=== PATIENT | female | born 1990 | race African-American/Black ===

== ENCOUNTER 2018-03-03 13:26 | Emergency (ER) | payer OTHER, SELFPAY ==
--- OUTSIDE RECORDS SUMMARY | 2018-03-03 13:28 | XMS REPORT | Clinical Summary ---
:1990 Author Organization [facility] Address [address] [place] [address] Care Team Providers Name Role Phone Asked, No Pcp Primary Care Provider Unavailable Allergies Active Allergy Reactions Severity Noted Date Comments Aspirin Itching 04/10/2017 Hydrocodone-Acetaminophen Itching Medium 04/10/2017 Current Medications Prescription Sig. Disp. Refills Start Date End Date Status nicotine (NICODERM CQ) Place 1 patch on 30 patch 0 04/11/2017 05/11/2017 21 mg/24 the skin daily hrIndications: Smoking for 30 days Cessation Indications: Smoking Cessation. Active Problems Problem Noted Date Severe episode of recurrent major depressive disorder, without psychotic 04/10 features Encounters Date Type Specialty Care Team Description 04/09/2017 - Hospital Encounter Psychiatry Kaci Romero MD 04/11/2017 Axel Singer MD Flack, James N., MD after 03/02/2017 Family History Medical History Relation Name Comments Bipolar disorder Father Depression Father Bipolar disorder Mother Depression Mother Relation Name Status Comments Father Mother Social History Tobacco Use Types Packs/Day Years Used Date Current Some Day Smoker Cigarettes 1 Started: 04/06/2016 Tobacco Cessation: Ready to Quit: No; Counseling Given: Yes Comments: Quitline Alcohol Use Drinks/Week oz/Week Comments No Sex Assigned at Date Recorded Not on file Last Filed Vital Signs Vital Sign Reading Time Taken Blood Pressure 110/81 04/11/2017 6:11 AM CDT Pulse 80 04/11/2017 6:11 AM CDT Temperature 36.7 C (98 F) 04/11/2017 6:11 AM CDT Respiratory Rate 22 04/11/2017 6:11 AM CDT Oxygen Saturation 96% 04/11/2017 6:11 AM CDT Inhaled Oxygen Concentration - - Weight 116 kg (255 lb 4 oz) 04/10/2017 12:06 AM CDT Height 165.1 cm (5' 5") 04/10/2017 12:06 AM CDT Body Mass Index 42.48 04/10/2017 12:06 AM CDT Plan of Treatment Health Maintenance Due Date Last Done Comments DIABETIC FOOT EXAM 1998 DIABETIC RETINAL EYE EXAM 1998 URINE MICROALBUMIN 1998 CERVICAL CANCER SCREENING 2009 INFLUENZA VACCINE 03/06/2018 Procedures Procedure Name Priority Date/Time Associated Comments Diagnosis US GREATER STAT 04/11/2017 9:55 AM Results for this THAN 14 WEEKS CDT procedure are in the results section. CBC HEMOGRAM Routine 04/11/2017 5:45 AM Results for this CDT procedure are in the results section. FASTING GLUCOSE Routine 04/11/2017 5:45 AM Results for this LEVEL CDT procedure are in the results section. TYPE AND SCREEN Routine 04/11/2017 5:45 AM Results for this CDT procedure are in the results section. ESTIMATED GFR Routine 04/11/2017 3:42 AM Results for this CDT procedure are in the results section. BASIC METABOLIC Routine 04/11/2017 3:42 AM Results for this PANEL CDT procedure are in the results section. HEPATITIS B SURFACE Routine 04/10/2017 6:20 PM Results for this ANTIGEN CDT procedure are in the results section. GLUCOSE LEVEL Routine 04/10/2017 6:20 PM Results for this CDT procedure are in the results section. RUBELLA AB IGG Routine 04/10/2017 6:18 PM Results for this CDT procedure are in the results section. HIV 1, 2 ANTIBODY Routine 04/10/2017 6:18 PM Results for this CDT procedure are in the results section. SYPHILIS TREPONEMAL Routine 04/10/2017 6:18 PM Results for this IGG CDT procedure are in the results section. LIPID PANEL Routine 04/10/2017 5:40 AM Results for this CDT procedure are in the results section. HEMOGLOBIN A1C Routine 04/10/2017 5:40 AM Results for this CDT procedure are in the results section. after 03/02/2017 Results US Greater Than 14 Weeks (04/11/2017 9:55 AM) Narrative Performed At EXAM: ULTRASOUND OBSTETRICAL [facility] DATE: 04/11/2017 8:20 AM COMPARISON: None CLINICAL DATA: evaluation . TECHNIQUE: Limited Transabdominal images were obtained. FINDINGS: OVERVIEW: A single living fetus is identified in breech presentation.The estimated age based on biometric data is 18 weeks and 3 days. The estimated delivery date is 09/09/2017. The average heart rate is 147 beats per minutes. The placenta is posterior with gradeI.There is no evidence of placenta previa or abruption. The quantity of amniotic fluid is 18 cm (normal range none available) Estimated Weight: 233 grams. SURVEY: The lateral ventricle, spine, 4-chamber heart, stomach, kidneys, urinary bladder, 3-vessel cord, and cord insertion were identified.No morphologic abnormalities were seen. IMPRESSION: A single viable intrauterine with the estimated gestational age of 18 weeks and 3 days and the estimate delivery date of 09/09/2017. No sonographic evidence of placenta previa or abruption. Unremarkable anatomical survey. [id number] Procedure Note Interface, Radiology Results Incoming - 04/11/2017 10:17 AM CDT EXAM: ULTRASOUND OBSTETRICAL DATE: 04/11/2017 8:20 AM COMPARISON: None CLINICAL DATA: evaluation . TECHNIQUE: Limited Transabdominal images were obtained. FINDINGS: OVERVIEW: A single living fetus is identified in breech presentation. The estimated age based on biometric data is 18 weeks and 3 days. The estimated delivery date is 09/09/2017. The average heart rate is 147 beats per minutes. The placenta is posterior with gradeI. There is no evidence of placenta previa or abruption. The quantity of amniotic fluid is 18 cm (normal range none available) Estimated Weight: 233 grams. SURVEY: The lateral ventricle, spine, 4-chamber heart, stomach, kidneys, urinary bladder, 3-vessel cord, and cord insertion were identified. No morphologic abnormalities were seen. IMPRESSION: A single viable intrauterine with the estimated gestational age of 18 weeks and 3 days and the estimate delivery date of 09/09/2017. No sonographic evidence of placenta previa or abruption. Unremarkable anatomical survey. [facility]-[id number] Performing Organization Address City/State/Zipcode Phone Number [facility] [address] [place] [address] CBC hemogram (04/11/2017 5:45 AM) WBC 12.03 (H) 4.50 - 11.00 k/uL [facility] DEPARTMENT OF PATHOLOGY AND GENOMIC MEDICINE RBC 4.17 (L) 4.20 - 5.50 m/uL [facility] DEPARTMENT OF PATHOLOGY AND GENOMIC MEDICINE HGB 12.2 12.0 - 16.0 g/dL [facility] DEPARTMENT OF PATHOLOGY AND GENOMIC MEDICINE HCT 37.0 37.0 - 47.0 % [facility] DEPARTMENT OF PATHOLOGY AND GENOMIC MEDICINE MCV 88.7 82.0 - 100.0 fL [facility] DEPARTMENT OF PATHOLOGY AND GENOMIC MEDICINE MCH 29.3 27.0 - 34.0 pg [facility] DEPARTMENT OF PATHOLOGY AND GENOMIC MEDICINE MCHC 33.0 31.0 - 37.0 g/dL [facility] DEPARTMENT OF PATHOLOGY AND GENOMIC MEDICINE RDW - SD 42.4 37.0 - 55.0 fL [facility] DEPARTMENT OF PATHOLOGY AND GENOMIC MEDICINE MPV 9.3 8.8 - 13.2 fL [facility] DEPARTMENT OF PATHOLOGY AND GENOMIC MEDICINE Platelet count 353 150 - 400 k/uL [facility] DEPARTMENT OF PATHOLOGY AND GENOMIC MEDICINE Nucleated RBC 0.00 /100 WBC [facility] DEPARTMENT OF PATHOLOGY AND GENOMIC MEDICINE Specimen Blood Performing Organization Address City/State/Zipcode Phone Number [facility] DEPARTMENT OF PATHOLOGY AND [address] [place] [address] GENOMIC MEDICINE Type and screen (04/11/2017 5:45 AM) ABO grouping B [facility] DEPARTMENT OF PATHOLOGY AND GENOMIC MEDICINE Rh type POS [facility] DEPARTMENT OF PATHOLOGY AND GENOMIC MEDICINE Antibody screen (gel) NEG [facility] DEPARTMENT OF PATHOLOGY AND GENOMIC MEDICINE Specimen Blood Performing Organization Address City/[facility] Phone Number [facility] DEPARTMENT OF PATHOLOGY AND [address] [place] [address] MEDICINE Fasting glucose level (04/11/2017 5:45 AM) Glucose, fasting 101 (H) 65 - 99 mg/dL [facility] DEPARTMENT OF PATHOLOGY AND GENOMIC MEDICINE Specimen Blood Performing Organization Address City/[facility]/Zipcode Phone Number [facility] DEPARTMENT OF PATHOLOGY AND [address] [place] [address] GENOMIC MEDICINE Estimated GFR (04/11/2017 3:42 AM) GFR Non Af Amer >90 mL/min/1.73 m2 [facility] DEPARTMENT OF PATHOLOGY AND GENOMIC MEDICINE GFR Af Amer >90 mL/min/1.73 m2 [facility] DEPARTMENT OF Comment: PATHOLOGY AND GENOMIC Chronic kidney disease: <60 mL/min/1.73m2 MEDICINE Kidney failure: <15 mL/min/1.73m2 The estimated GFR is calculated from the IDMS-traceable Modification of Diet in Renal Disease Equation. The accuracy of the calculation is poor when the creatinine is normal. Calculated values >90 mL/min/1.73m2 are not reported. This equation has not been validated in children (<18 years), women, the elderly (>70 years), or ethnic groups other than Caucasians and Americans. Specimen Plasma specimen Performing Organization Address City/State/[facility] Phone Number [facility] DEPARTMENT OF PATHOLOGY AND [address] [place] [id number] [place] [address] Basic metabolic panel (04/11/2017 3:42 AM) Sodium 138 135 - 148 mEq/L [facility] DEPARTMENT OF PATHOLOGY AND GENOMIC MEDICINE Potassium 3.8 3.5 - 5.0 mEq/L [facility] DEPARTMENT OF PATHOLOGY AND GENOMIC MEDICINE Chloride 99 98 - 112 mEq/L [facility] DEPARTMENT OF PATHOLOGY AND GENOMIC MEDICINE CO2 23 (L) 24 - 31 mEq/L [facility] DEPARTMENT OF PATHOLOGY AND GENOMIC MEDICINE Anion gap 16 (H) 7 - 15 mEq/L [facility] DEPARTMENT OF PATHOLOGY Comment: AND [facility] Starting from November , anion gap calculation no longer incorporates potassium. Please note the change. BUN 6 6 - 20 mg/dL [facility] DEPARTMENT OF PATHOLOGY AND GENOMIC MEDICINE Creatinine 0.6 0.5 - 0.9 mg/dL [facility] DEPARTMENT OF PATHOLOGY AND GENOMIC MEDICINE Glucose 101 (H) 65 - 99 mg/dL [facility] DEPARTMENT OF PATHOLOGY AND GENOMIC MEDICINE Calcium 9.5 8.3 - 10.2 mg/dL [facility] DEPARTMENT OF PATHOLOGY AND [employer] MEDICINE Specimen Plasma specimen Performing Organization Address City/[facility] Phone Number [facility] DEPARTMENT OF PATHOLOGY AND [address] [place] [phone] [facility] Hepatitis B surface antigen (04/10/2017 6:20 PM) Hepatitis B surface Ag Non-reactive Non-reactive [facility] DEPARTMENT OF PATHOLOGY AND [facility] MEDICINE Specimen Blood Performing Organization Address City/[facility]/Zipcode Phone Number [facility] DEPARTMENT OF PATHOLOGY AND [address] [place] [phone] [facility] Glucose level (04/10/2017 6:20 PM) Glucose 98 65 - 99 mg/dL [facility] DEPARTMENT OF PATHOLOGY AND [facility] MEDICINE Specimen Plasma specimen Performing Organization Address [facility] Phone Number [facility] DEPARTMENT OF PATHOLOGY AND [address] [place] [address] Syphilis treponemal IgG (04/10/2017 6:18 PM) Syphilis treponemal IgG Non-reactiveComment: Non-reactive [facility] DEPARTMENT OF Non-reactive: No PATHOLOGY AND GENOMIC serological evidence of MEDICINE Syphilis infection Specimen Serum Performing Organization Address [facility] Phone Number [facility] DEPARTMENT OF PATHOLOGY AND [address] [place] [address] Rubella Ab IgG (04/10/2017 6:18 PM) Rubella IgG antibody Positive Negative [facility] DEPARTMENT OF PATHOLOGY Comment: [facility] IgG antibody levels are at a level that are considered to indicate positive immunity Specimen Serum Performing Organization Address [facility] Phone Number [facility] DEPARTMENT OF PATHOLOGY AND [address] [place] [address] HIV 1, 2 antibody (04/10/2017 6:18 PM) HIV 1, 2 antibody Non-reactive Non-reactive [facility] DEPARTMENT OF Comment: PATHOLOGY AND GENOMIC Starting from November 02 2015, 4th generation HIV screening MEDICINE and confirmation assays are in use at [facility], consistent with the CDC-recommended algorithm. The screening test detects antibodies to HIV-1, HIV-2 and the p24 antigen. Positive screening results will be automatically reflexed to a HIV-1/HIV-2 differentiation assay. Indeterminant HIV-1 results will be further automatically reflexed to a nucleic acid test for detection of acute infection. Western blot will no longer be performed as a confirmation test. For a quick reference guide on the testing algorithm, please refer to: http://stacks.cdc.gov/view/cdc/25349. Specimen Blood Performing Organization Address [facility] Phone Number [facility] DEPARTMENT OF PATHOLOGY AND [address] [place] [address] Hemoglobin A1c (04/10/2017 5:40 AM) Hemoglobin A1C 6.0 (H) 4.0 - 5.6 % [facility] DEPARTMENT OF PATHOLOGY Comment: AND [facility] HbA1c cutoffs for diagnosing diabetes: 4.0% - 5.6%=normal 5.7% - 6.4%=increased risk for diabetes (prediabetes) >=6.5%=diabetes Goals for glycemic control (ADA 2016) < 7.0%Target for non adults with diabetes. More or less stringent targets may be appropriate for individual patients. <7.5% Target for Children and adolescents with type 1 diabetes. Specimen Blood Performing Organization Address City/[facility] Phone Number [facility] DEPARTMENT OF PATHOLOGY AND [address] [place] [address] GENOMIC MEDICINE Lipid panel (04/10/2017 5:40 AM) Cholesterol 167 <200 mg/dL [facility] DEPARTMENT OF PATHOLOGY AND GENOMIC MEDICINE Triglycerides 122 <150 mg/dL [facility] DEPARTMENT OF PATHOLOGY AND GENOMIC MEDICINE HDL cholesterol 55 >40 mg/dL [facility] DEPARTMENT OF PATHOLOGY AND GENOMIC MEDICINE LDL cholesterol 98Comment: Result <100 mg/dL [facility] DEPARTMENT OF obtained by direct LDL PATHOLOGY AND GENOMIC measurement MEDICINE Lipid panel interpretation SeeBelow [facility] DEPARTMENT OF Comment: PATHOLOGY AND GENOMIC Total Cholesterol (mg/dL) MEDICINE <200 Desirable 187-758Nnzpxmkrfm-[id number] >=240High Triglycerides (mg/dL) <150 Normal 073-660Oczosqgomn-szne 200-499High >=500Very high HDL Cholesterol (mg/dL) <40Low (male) <40Low (female) LDL Cholesterol (mg/dL) <100 Optimal 100-129Near or above optimal 134-560Tskcdcotfp-rifx 160-189High >=190Very high Risk Catergories that modify LDL goals. Risk CatergoriesLDL goal (mg/dL) CHD and CHD risk equivalent<100 (10-year risk >20%) Multiple (2+) risk factors <130 (10-year risk=<20%) 0-1 risk factors <160 (<10-year risk) Defining levels of lipids in metabolic syndrome Triglycerides>=150 mg/dL HDL Cholesterol Men<40 mg/dL Women<40 mg/dL Non-HDL cholesterol is a second target for therapy in persons with high triglycerides (>=200 mg/dL) Specimen Plasma specimen Performing Organization Address City/State/Zipcode Phone Number [facility] DEPARTMENT OF PATHOLOGY AND [address] [place] [address] [employer] MEDICINE after 03/02/2017 Insurance Payer Benefit Plan / Group Subscriber ID Type Phone Address MEDICAID MEDICAID xxxxxxxxx Medicaid
[2018-03-03 14:45] LABS: Absolute Lymphocytes (CBC) 3.1 K/uL (0.7-4.9); Absolute Monocytes 0.6 K/uL (0.1-1.3); Absolute Neutrophil 6.1 K/uL (1.8-8.0); Basophils % 1.3 % (0-1.3); Eosinophils % 2.8 % (0-4.4); Hematocrit 39.9 % (36.0-45.0); MCH 28.5 pg (27.0-35.0); MCV 85.5 fL (80-100); MPV 7.7 fL (7.6-11.3); RBC Red Blood Cell Count 4.67 M/uL (3.86-4.86)
[2018-03-03] MEDS ORDERED: NA CHLORIDE 0.9% 1,000 ML ONE (14:53)
[2018-03-03] MEDS ORDERED: ONDANSETRON 4 MG/2 ML VIAL ONE (14:53)
[2018-03-03 15:02] LABS: ALT/SGPT 23 U/L (12-78); AST/SGOT 15 U/L (15-37); Albumin 3.5 g/dL (3.4-5.0); Alkaline Phosphatase 102 U/L (45-117); Amylase Level 40 U/L (25-115); BUN Blood Urea Nitrogen 8 mg/dL (7-18); Bicarbonate 30 mmol/L (21-32); Bilirubin Direct < 0.1 mg/dL (0-0.2); Bilirubin Total 0.2 mg/dL (0.2-1.0); Glucose Level 211 mg/dL (74-106); Lipase 195 U/L (73-393); Potassium 3.6 mmol/L (3.5-5.1); Protein, Total 7.6 g/dL (6.4-8.2); Sodium Level 140 mmol/L (136-145)
[2018-03-03 15:05] LABS: Urine Bacteria <20 /HPF (<20); Urine Culture Reflex Order NOT NEEDED; Urine RBC NONE SEEN /HPF (NONE SEEN)
[2018-03-03 15:06] LABS: Urine Blood NEGATIVE (NEG); Urine Glucose NEGATIVE (NEG); Urine Protein NEGATIVE (NEG); Urine Specific Gravity 1.015 (1.005-1.030); Urine pH 6.5 (5.0-7.0)
--- NOTE | 2018-03-03 16:14 | ER ---
Nurse's Notes [facility] Name: Juan Lu Age: 27 yrs Sex: Female : 1990 Arrival Date: 03/03/2018 Time: 13:27 Bed 24 Private MD: Diagnosis: Peptic ulcer, site unspecified Presentation: 03/03 13:31 Presenting complaint: Patient states: Abdominal cramping and diarrhea since . aj Transition of care: patient was not received from another setting of care. Onset of symptoms was February 27, 2018. Risk Assessment: Do you want to hurt yourself or someone else? Patient reports no desire to harm self or others. Initial Sepsis Screen: Does the patient meet any 2 criteria? No. Patient's initial sepsis screen is negative. Does the patient have a suspected source of infection? No. Patient's initial sepsis screen is negative. Note Patient arrived from [facility] with Non Narcotic agreement. Care prior to arrival: None. 13:31 Method Of Arrival: EMS: [facility] 13:31 Acuity: MEGHAN 3 aj Triage Assessment: 13:32 General: Appears in no apparent distress. comfortable, Behavior is calm, cooperative, aj appropriate for age. Pain: Denies pain. Neuro: Level of Consciousness is awake, alert, obeys commands, Oriented to person, place, time, situation, Appropriate for age. Respiratory: Airway is patent Respiratory effort is even, unlabored, Respiratory pattern is regular, symmetrical. GI: Reports cramping, diarrhea. Derm: Skin is intact, is healthy with good turgor, Skin is pink, warm \T\ dry. normal. GLASS SAGGER: 13:32 LMP 02/24/2018 aj Historical: - Allergies: 13:32 Aspirin; aj 13:32 Vicodin; aj 13:32 Banana; aj - PMHx: 13:32 Diabetes - NIDDM; Bipolar disorder; aj - PSHx: 13:32 ; aj - Immunization history:: Adult Immunizations up to date. - Social history:: Smoking status: Patient uses tobacco products, denies chronic smoking, but will smoke occasionally. - Ebola Screening: : Patient negative for fever greater than or equal to 101.5 degrees Fahrenheit, and additional compatible Ebola Virus Disease symptoms Patient denies exposure to infectious person Patient denies travel to an Ebola-affected area in the 21 days before illness onset No symptoms or risks identified at this time. - Family history:: not pertinent. - Hospitalizations: : No recent hospitalization is reported. Screenin:39 Abuse screen: Denies threats or abuse. Denies injuries from another. Nutritional ed1 screening: No deficits noted. Tuberculosis screening: No symptoms or risk factors identified. Fall Risk None identified. Assessment: 13:39 General: Appears in no apparent distress. Behavior is calm, cooperative. Pain: ed1 Complains of pain in abdomen Pain does not radiate. Pain currently is 6 out of 10 on a pain scale. Quality of pain is described as aching, Pain began 2-3 days ago. Is continuous. Neuro: Level of Consciousness is awake, alert, obeys commands, Oriented to person, place, time, situation. Cardiovascular: Denies chest pain, Heart tones S1 S2 present Capillary refill < 3 seconds in bilateral fingers. Respiratory: Airway is patent Respiratory effort is even, unlabored, Respiratory pattern is regular, symmetrical, Breath sounds are clear bilaterally. GI: Abdomen is non-distended, Bowel sounds present X 4 quads. Abd is soft and non tender X 4 quads. Reports lower abdominal pain, upper abdominal pain, diarrhea, nausea, Patient currently denies vomiting. : No signs and/or symptoms were reported regarding the genitourinary system. EENT: No signs and/or symptoms were reported regarding the EENT system. Derm: Skin is intact, is healthy with good turgor, Skin is dry, Skin is normal, Skin temperature is warm. Musculoskeletal: Circulation, motion, and sensation intact. 13:42 General: the previous assessment is accurate, call light remains within reach. 15:20 Reassessment: Patient appears in no apparent distress at this time. No changes from ed1 previously documented assessment. Patient and/or family updated on plan of care and expected duration. Pain level reassessed. Patient is alert, oriented x 3, equal unlabored respirations, skin warm/dry/pink. Patient states symptoms have not improved. 16:43 Reassessment: Patient appears in no apparent distress at this time. Patient and/or ed1 family updated on plan of care and expected duration. Pain level reassessed. Patient is alert, oriented x 3, equal unlabored respirations, skin warm/dry/pink. Patient denies pain at this time. Patient states feeling better. Patient states symptoms have improved. Vital Signs: 13:32 BP 154 / 98; Pulse 80; Resp 16; Temp 97.8; Pulse Ox 99% on R/A; Weight 117.93 kg; aj Height 5 ft. 5 in. (165.10 cm); 15:20 BP 126 / 75; Pulse 72; Resp 20; Pulse Ox 100% on R/A; Pain 6/10; ed1 16:34 BP 136 / 84; Pulse 76; Resp 16; Pulse Ox 100% ; Pain 0/10; tt1 13:32 Body Mass Index 43.27 (117.93 kg, 165.10 cm) aj ED Course: 13:27 Patient arrived in ED. as 13:32 Triage completed. aj 13:32 Arm band placed on right wrist. aj 13:36 Buffy Martin LVN is Primary Nurse. ed1 13:39 Patient has correct armband on for positive identification. Bed in low position. Call ed1 light in reach. 13:41 Awaiting ED provider evaluation. ed1 13:51 [facility]quivel FNP [facility] kav 13:51 Efrain Denny MD is Attending Physician. kav 14:33 Initial lab(s) drawn, by co, sent to lab. Urine collected: clean catch specimen, ed1 cloudy. Inserted saline lock: 22 gauge in right antecubital area, using aseptic technique. Blood collected. 16:34 IV discontinued, bleeding controlled, No redness/swelling at site. Pressure dressing tt1 applied. 16:43 No provider procedures requiring assistance completed. ed1 16:44 IV discontinued. ed1 Administered Medications: 14:28 CANCELLED (Narcotics Program): fentaNYL (PF) 25 mcg IVP once kav 14:52 Drug: Zofran 4 mg Route: IVP; Site: right antecubital; 16:44 Follow up: Response: Nausea is decreased ed1 14:55 Drug: NS 0.9% 1000 ml Route: IV; Rate: 1000 ml; Site: right antecubital; ed1 16:44 Follow up: IV Status: Completed infusion; IV Intake: 1000ml ed1 Intake: 16:44 IV: 1000ml; Total: 1000ml. ed1 Outcome: 16:14 Discharge ordered by . kav 16:43 Discharged to home ambulatory. ed1 16:43 Condition: good 16:43 Discharge instructions given to patient, Instructed on discharge instructions, follow up and referral plans. medication usage, Demonstrated understanding of instructions, follow-up care, medications, Prescriptions given X 1. 16:44 Patient left the ED. ed1 Signatures: Lesvia Hunter, RN RN Juanita Quevedo, EGG PRODUCER EGG PRODUCER Raina Shabazz Shelby, RN RN ss Riggs, Erika, SWIMMING POOL ATTENDANT SWIMMING POOL ATTENDANT ed1 Rachel Dinh tt1
--- NOTE | 2018-03-03 16:14 | EDPHYS ---
Physician Documentation [facility] Name: Juan Lu Age: 27 yrs Sex: Female : 1990 Arrival Date: 03/03/2018 Time: 13:27 Bed 24 Private MD: ED Physician Efrain Denny HPI: 03/03 13:50 This 27 yrs old Black Female presents to ER via EMS with complaints of Abdominal Pain, kav Diarrhea. 14:23 The patient presents with abdominal pain in the periumbilical area. Abdominal pain is kav reportedly worse after eating.. Onset: The symptoms/episode began/occurred acutely. The symptoms do not radiate. Associated signs and symptoms: Pertinent positives: nausea, Pertinent negatives: diarrhea, fever. The symptoms are described as crampy. Modifying factors: The symptoms are alleviated by nothing, the symptoms are aggravated by food. Severity of pain: At its worst the pain was moderate just prior to arrival, a 7 / 10. The patient has experienced a previous episode, approximately 3 months ago, DX: H-Pylori. The patient has not recently seen a physician. . 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 - Social history:: Smoking status: Patient uses tobacco products, denies chronic smoking, but will smoke occasionally. - Ebola Screening: : Patient negative for fever greater than or equal to 101.5 degrees Fahrenheit, and additional compatible Ebola Virus Disease symptoms Patient denies exposure to infectious person Patient denies travel to an Ebola-affected area in the 21 days before illness onset No symptoms or risks identified at this time. - Family history:: not pertinent. - Hospitalizations: : No recent hospitalization is reported. ROS: 14:29 Abdomen/GI: Positive for abdominal pain, nausea, diarrhea, abdominal cramps, Negative kav for abdominal distension. 14:29 Constitutional: Negative for fever, chills, and weight loss, Eyes: Negative for injury, kav pain, redness, and discharge, ENT: Negative for injury, pain, and discharge, Neck: Negative for injury, pain, and swelling, Cardiovascular: Negative for chest pain, palpitations, and edema, Respiratory: Negative for shortness of breath, cough, wheezing, and pleuritic chest pain, Back: Negative for injury and pain, : Negative for injury, bleeding, discharge, and swelling, MS/Extremity: Negative for injury and deformity, Skin: Negative for injury, rash, and discoloration, Neuro: Negative for headache, weakness, numbness, tingling, and seizure, Psych: Negative for depression, anxiety, suicide ideation, homicidal ideation, and hallucinations, Allergy/Immunology: Negative for hives, rash, and allergies, Endocrine: Negative for neck swelling, polydipsia, polyuria, polyphagia, and marked weight changes, Hematologic/Lymphatic: Negative for swollen nodes, abnormal bleeding, and unusual bruising. Exam: 14:29 Constitutional: This is a well developed, well nourished patient who is awake, alert, kav and in no acute distress. Head/Face: Normocephalic, atraumatic. Eyes: Pupils equal round and reactive to light, extra-ocular motions intact. Lids and lashes normal. Conjunctiva and sclera are non-icteric and not injected. Cornea within normal limits. Periorbital areas with no swelling, redness, or edema. ENT: Nares patent. No nasal discharge, no septal abnormalities noted. Tympanic membranes are normal and external auditory canals are clear. Oropharynx with no redness, swelling, or masses, exudates, or evidence of obstruction, uvula midline. Mucous membranes moist. Neck: Trachea midline, no thyromegaly or masses palpated, and no cervical lymphadenopathy. Supple, full range of motion without nuchal rigidity, or vertebral point tenderness. No Meningismus. Chest/axilla: Normal chest wall appearance and motion. Nontender with no deformity. No lesions are appreciated. Cardiovascular: Regular rate and rhythm with a normal S1 and S2. No gallops, murmurs, or rubs. Normal PMI, no JVD. No pulse deficits. Respiratory: Lungs have equal breath sounds bilaterally, clear to auscultation and percussion. No rales, rhonchi or wheezes noted. No increased work of breathing, no retractions or nasal flaring. Back: No spinal tenderness. No costovertebral tenderness. Full range of motion. Skin: Warm, dry with normal turgor. Normal color with no rashes, no lesions, and no evidence of cellulitis. MS/ Extremity: Pulses equal, no cyanosis. Neurovascular intact. Full, normal range of motion. Neuro: Awake and alert, GCS 15, oriented to person, place, time, and situation. Cranial nerves II-XII grossly intact. Motor strength 5/5 in all extremities. Sensory grossly intact. Cerebellar exam normal. Normal gait. Psych: Awake, alert, with orientation to person, place and time. Behavior, mood, and affect are within normal limits. 14:29 Abdomen/GI: Inspection: gravid appearance, obese Bowel sounds: normal, in all quadrants, Palpation: moderate abdominal tenderness, in the umbilical area. Vital Signs: 13:32 BP 154 / 98; Pulse 80; Resp 16; Temp 97.8; Pulse Ox 99% on R/A; Weight 117.93 kg; aj Height 5 ft. 5 in. (165.10 cm); 15:20 BP 126 / 75; Pulse 72; Resp 20; Pulse Ox 100% on R/A; Pain 6/10; ed1 16:34 BP 136 / 84; Pulse 76; Resp 16; Pulse Ox 100% ; Pain 0/10; tt1 13:32 Body Mass Index 43.27 (117.93 kg, 165.10 cm) MDM: 14:29 Medical screening is not applicable. [facility] 14:29 Data reviewed: vital signs, nurses notes. [facility] 03/03 14:14 Order name: Amylase, Serum [facility] 03/03 14:14 Order name: Basic Metabolic Panel [facility] 03/03 14:14 Order name: CBC with Diff; Complete Time: 15:59 [facility] 03/03 14:14 Order name: Creatinine for Radiology; Complete Time: 15:59 [facility] 03/03 14:14 Order name: Hepatic Function; Complete Time: 15:59 [facility] 03/03 14:14 Order name: Lipase; Complete Time: 15:59 [facility] 03/03 14:14 Order name: Urine Microscopic Only; Complete Time: 15:59 [facility] 03/03 14:15 Order name: Amylase Level; Complete Time: 15:59 [facility] 03/03 14:15 Order name: Basic Metabolic Panel; Complete Time: 15:59 [facility] 03/03 14:43 Order name: Urine Dipstick--Ancillary (enter results) 03/03 14:43 Order name: Urine --Ancillary (enter results) 03/03 14:43 Order name: Urine Dipstick-Ancillary; Complete Time: 15:59 [facility] 03/03 14:43 Order name: Urine --Ancillary; Complete Time: 15:59 EDMA 03/03 14:14 Order name: Urine Test (obtain specimen); Complete Time: 14:34 kav 03/03 14:14 Order name: IV Saline Lock; Complete Time: 14:34 kav 03/03 14:14 Order name: Labs collected and sent; Complete Time: 14:34 kav 03/03 14:14 Order name: Urine Dipstick-Ancillary (obtain specimen); Complete Time: 14:34 kav Administered Medications: 14:28 CANCELLED (Narcotics Program): fentaNYL (PF) 25 mcg IVP once kav 14:52 Drug: Zofran 4 mg Route: IVP; Site: right antecubital; 16:44 Follow up: Response: Nausea is decreased ed1 14:55 Drug: NS 0.9% 1000 ml Route: IV; Rate: 1000 ml; Site: right antecubital; ed1 16:44 Follow up: IV Status: Completed infusion; IV Intake: 1000ml ed1 Disposition: 16:52 Co-signature as Attending Physician, Efrain Denny MD I agree with the assessment and kdr plan of care. Disposition: 03/03/18 16:14 Discharged to Home. Impression: Peptic ulcer, site unspecified. - Condition is Stable. - Discharge Instructions: Peptic Ulcer, [id number]. - Prescriptions for sucralfate 1 gram Oral tablet - take 1 tablet by ORAL route 4 times per day on an empty stomach 1 hour before meals and at bedtime; 40 tablet. - Medication Reconciliation Form, Thank You Letter, Antibiotic Education, Prescription Opioid Use form. - Follow up: Private Physician; When: 5 - 6 days; Reason: Recheck today's complaints, Continuance of care, Re-evaluation by your physician. - Problem is new. - Symptoms have improved. Signatures: Dispatcher [employer] [facility] Lesvia Hunter RN RN aj Rittger, Kevin, MD MD kdr Vern, Katherine, CUSTODIAL LABORER CUSTODIAL LABORER Yohana Becerra RN RN ss Martin, Buffy, FISCAL MANAGER FISCAL MANAGER ed1 Corrections: (The following items were deleted from the chart) 14:28 14:14 fentaNYL (PF) 25 mcg IVP once ordered. kav kav 14:30 14:26 Constitutional: Negative for fever, chills, and weight loss, Eyes: Negative for kav injury, pain, redness, and discharge, ENT: Negative for injury, pain, and discharge, Neck: Negative for injury, pain, and swelling, Cardiovascular: Negative for chest pain, palpitations, and edema, Respiratory: Negative for shortness of breath, cough, wheezing, and pleuritic chest pain, Back: Negative for injury and pain, : Negative for injury, bleeding, discharge, and swelling, MS/Extremity: Negative for injury and deformity, Skin: Negative for injury, rash, and discoloration, Neuro: Negative for headache, weakness, numbness, tingling, and seizure, Psych: Negative for depression, anxiety, suicide ideation, homicidal ideation, and hallucinations, Allergy/Immunology: Negative for hives, rash, and allergies, Endocrine: Negative for neck swelling, polydipsia, polyuria, polyphagia, and marked weight changes, Hematologic/Lymphatic: Negative for swollen nodes, abnormal bleeding, and unusual bruising, kav 16:44 16:14 03/03/2018 16:14 Discharged to Home. Impression: Peptic ulcer, site unspecified. ed1 Condition is Stable. Forms are Medication Reconciliation Form, Thank You Letter, Antibiotic Education, Prescription Opioid Use. Follow up: Private Physician; When: 5 - 6 days; Reason: Recheck today's complaints, Continuance of care, Re-evaluation by your physician. Problem is new. Symptoms have improved. kav
== END 2018-03-03 16:44 | disposition home or self-care (01) ==
LOC: ER 13:26
DX: K27.9 Peptic ulcer, site unspecified, unspecified as acute or chronic, without hemorrhage or perforation (principal); Z72.0 Tobacco use; Z88.5 Allergy status to narcotic agent; Z88.6 Allergy status to analgesic agent; Z91.018 Allergy to other foods
CPT/HCPCS: 36415; 80048; 80076; 81003; 81015; 81025; 82150; 83690; 85025; 96361; 96374; 99284; J2405; J7030

== ENCOUNTER 2018-03-19 14:26 | Emergency (ER) | payer SELFPAY ==
--- OUTSIDE RECORDS SUMMARY | 2018-03-19 14:29 | XMS REPORT | Clinical Summary ---
:1990 Author Organization [facility] [employer] Address [address] [place] [address] Care Team Providers Name Role Phone Asked, [...] Singer MD Flack, James N., MD after 03/18/2017 Family History Medical History Relation Name Comments [...] procedure are in the results section. after 03/18/2017 Results US Greater Than 14 Weeks (04/11/2017 [...] placenta previa or abruption. Unremarkable anatomical survey. [id number] Procedure Note Interface, Radiology Results Incoming - [...] placenta previa or abruption. Unremarkable anatomical survey. [facility]-[id number] Performing Organization Address City/State/Zipcode Phone Number [facility] [address] [place] [address] CBC hemogram (04/11/2017 5:45 AM) WBC 12.03 (H) 4.50 - 11.00 k/uL [facility] DEPARTMENT OF PATHOLOGY AND GENOMIC MEDICINE RBC 4.17 (L) 4.20 - 5.50 m/uL [facility] DEPARTMENT OF PATHOLOGY AND GENOMIC MEDICINE HGB 12.2 12.0 - 16.0 g/dL [facility] DEPARTMENT OF PATHOLOGY AND GENOMIC MEDICINE HCT 37.0 37.0 - 47.0 % [facility] DEPARTMENT OF PATHOLOGY AND GENOMIC MEDICINE MCV 88.7 82.0 - 100.0 fL [facility] DEPARTMENT OF PATHOLOGY AND GENOMIC MEDICINE MCH 29.3 27.0 - 34.0 pg [facility] DEPARTMENT OF PATHOLOGY AND GENOMIC MEDICINE MCHC 33.0 31.0 - 37.0 g/dL [facility] DEPARTMENT OF PATHOLOGY AND GENOMIC MEDICINE RDW - SD 42.4 37.0 - 55.0 fL [facility] DEPARTMENT OF PATHOLOGY AND GENOMIC MEDICINE MPV 9.3 8.8 - 13.2 fL [facility] DEPARTMENT OF PATHOLOGY AND GENOMIC MEDICINE Platelet count 353 150 - 400 k/uL [facility] DEPARTMENT OF PATHOLOGY AND GENOMIC MEDICINE Nucleated RBC 0.00 /100 WBC [facility] DEPARTMENT OF PATHOLOGY AND GENOMIC MEDICINE Specimen Blood Performing Organization Address City/State/Zipcode Phone Number [facility] DEPARTMENT OF PATHOLOGY AND [address] [place] [address] GENOMIC MEDICINE Type and screen (04/11/2017 5:45 AM) ABO grouping B [facility] DEPARTMENT OF PATHOLOGY AND GENOMIC MEDICINE Rh type POS [facility] DEPARTMENT OF PATHOLOGY AND GENOMIC MEDICINE Antibody screen (gel) NEG [facility] DEPARTMENT OF PATHOLOGY AND GENOMIC MEDICINE Specimen Blood Performing Organization Address City/[facility] Phone Number [facility] DEPARTMENT OF PATHOLOGY AND [address] [place] [address] MEDICINE Fasting glucose level (04/11/2017 5:45 AM) Glucose, fasting 101 (H) 65 - 99 mg/dL [facility] DEPARTMENT OF PATHOLOGY AND GENOMIC MEDICINE Specimen Blood Performing Organization Address City/[facility]/Zipcode Phone Number [facility] DEPARTMENT OF PATHOLOGY AND [address] [place] [address] GENOMIC MEDICINE Estimated GFR (04/11/2017 3:42 AM) GFR Non Af Amer >90 mL/min/1.73 m2 [facility] DEPARTMENT OF PATHOLOGY AND GENOMIC MEDICINE GFR Af Amer >90 mL/min/1.73 m2 [facility] DEPARTMENT OF Comment: PATHOLOGY AND GENOMIC Chronic [...] Americans. Specimen Plasma specimen Performing Organization Address City/State/[facility] Phone Number [facility] DEPARTMENT OF PATHOLOGY AND [address] [place] [id number] [place] [address] Basic metabolic panel (04/11/2017 3:42 AM) Sodium 138 135 - 148 mEq/L [facility] DEPARTMENT OF PATHOLOGY AND GENOMIC MEDICINE Potassium 3.8 3.5 - 5.0 mEq/L [facility] DEPARTMENT OF PATHOLOGY AND GENOMIC MEDICINE Chloride 99 98 - 112 mEq/L [facility] DEPARTMENT OF PATHOLOGY AND GENOMIC MEDICINE CO2 23 (L) 24 - 31 mEq/L [facility] DEPARTMENT OF PATHOLOGY AND GENOMIC MEDICINE Anion gap 16 (H) 7 - 15 mEq/L [facility] DEPARTMENT OF PATHOLOGY Comment: [facility] Starting from November , anion gap calculation no longer incorporates potassium. Please note the change. BUN 6 6 - 20 mg/dL [facility] DEPARTMENT OF PATHOLOGY AND GENOMIC MEDICINE Creatinine 0.6 0.5 - 0.9 mg/dL [facility] DEPARTMENT OF PATHOLOGY AND GENOMIC MEDICINE Glucose 101 (H) 65 - 99 mg/dL [facility] DEPARTMENT OF PATHOLOGY AND GENOMIC MEDICINE Calcium 9.5 8.3 - 10.2 mg/dL [facility] DEPARTMENT OF PATHOLOGY AND [employer] MEDICINE Specimen Plasma specimen Performing Organization Address City/[facility] Phone Number [facility] DEPARTMENT OF PATHOLOGY AND [address] [place] [id number] [facility] Hepatitis B surface antigen (04/10/2017 6:20 PM) Hepatitis B surface Ag Non-reactive Non-reactive [facility] DEPARTMENT OF PATHOLOGY AND [employer] MEDICINE Specimen Blood Performing Organization Address City/[facility]/Zipcode Phone Number [facility] DEPARTMENT OF PATHOLOGY AND [address] [place] [id number] [facility] Glucose level (04/10/2017 6:20 PM) Glucose 98 65 - 99 mg/dL [facility] DEPARTMENT OF PATHOLOGY AND [facility] MEDICINE Specimen Plasma specimen Performing Organization Address [facility] Phone Number [facility] DEPARTMENT OF PATHOLOGY AND [address] [place] [address] Syphilis treponemal IgG (04/10/2017 6:18 PM) Syphilis treponemal IgG Non-reactiveComment: Non-reactive [facility] DEPARTMENT OF Non-reactive: No PATHOLOGY AND GENOMIC serological evidence of MEDICINE Syphilis infection Specimen Serum Performing Organization Address [facility] Phone Number [facility] DEPARTMENT OF PATHOLOGY AND [address] [place] [address] Rubella Ab IgG (04/10/2017 6:18 PM) Rubella IgG antibody Positive Negative [facility] DEPARTMENT OF PATHOLOGY Comment: [facility] IgG antibody levels are at a level that are considered to indicate positive immunity Specimen Serum Performing Organization Address [facility] Phone Number [facility] DEPARTMENT OF PATHOLOGY AND [address] [place] [address] HIV 1, 2 antibody (04/10/2017 6:18 PM) HIV 1, 2 antibody Non-reactive Non-reactive [facility] DEPARTMENT OF Comment: PATHOLOGY AND GENOMIC Starting from November 02 2015, 4th generation HIV screening MEDICINE and confirmation assays are in use at [facility], consistent with the CDC-recommended algorithm. [...] on the testing algorithm, please refer to: http://stacks.cdc.gov/view/cdc/54993. Specimen Blood Performing Organization Address [facility] Phone Number [facility] DEPARTMENT OF PATHOLOGY AND [address] [place] [address] Hemoglobin A1c (04/10/2017 5:40 AM) Hemoglobin A1C 6.0 (H) 4.0 - 5.6 % [facility] DEPARTMENT OF PATHOLOGY Comment: [facility] HbA1c cutoffs for diagnosing diabetes: 4.0% - 5.6%=normal 5.7% - 6.4%=increased risk for diabetes (prediabetes) >=6.5%=diabetes Goals for glycemic control (ADA 2016) < 7.0%Target for non adults with diabetes. More or less stringent targets may be appropriate for individual patients. <7.5% Target for Children and adolescents with type 1 diabetes. Specimen Blood Performing Organization Address City/[facility] Phone Number [facility] DEPARTMENT OF PATHOLOGY AND [address] [place] [address] GENOMIC MEDICINE Lipid panel (04/10/2017 5:40 AM) Cholesterol 167 <200 mg/dL [facility] DEPARTMENT OF PATHOLOGY AND GENOMIC MEDICINE Triglycerides 122 <150 mg/dL [facility] DEPARTMENT OF PATHOLOGY AND GENOMIC MEDICINE HDL cholesterol 55 >40 mg/dL [facility] DEPARTMENT OF PATHOLOGY AND GENOMIC MEDICINE LDL cholesterol 98Comment: Result <100 mg/dL [facility] DEPARTMENT OF obtained by direct LDL PATHOLOGY AND GENOMIC measurement MEDICINE Lipid panel interpretation SeeBelow [facility] DEPARTMENT OF Comment: PATHOLOGY AND GENOMIC Total Cholesterol (mg/dL) MEDICINE <200 Desirable [id number] >=240High Triglycerides (mg/dL) <150 Normal [id number] 200-499High >=500Very high HDL Cholesterol (mg/dL) <40Low (male) <40Low (female) LDL Cholesterol (mg/dL) <100 Optimal 100-129Near or above optimal [phone]-dlun 160-189High >=190Very high Risk Catergories that modify [...] specimen Performing Organization Address City/State/Zipcode Phone Number [facility] DEPARTMENT OF PATHOLOGY AND [address] [place] [address] [employer] MEDICINE after 03/18/2017 Insurance Payer Benefit Plan / Group Subscriber ID Type Phone Address MEDICAID MEDICAID xxxxxxxxx Medicaid
[2018-03-19] MEDS ORDERED: LIDOCAINE 1% W/EPI 1:100,000 MDV 50 ML VIAL ONE (15:30)
[2018-03-19 15:40] LABS: Urine Blood NEGATIVE (NEG); Urine Glucose 2+ (NEG); Urine Protein NEGATIVE (NEG)
--- NOTE | 2018-03-19 15:44 | ER ---
Nurse's Notes [facility] Name: Juan Lu Age: 27 yrs Sex: Female : 1990 Arrival Date: 03/19/2018 Time: 14:28 Bed 20 Private MD: None, None Diagnosis: Cutaneous abscess of limb;Type 2 diabetes mellitus Presentation: 03/19 14:59 Presenting complaint: Patient states: Reports an abscess on her left inner thigh for aj1 the last 4 days. Denies drainage, denies fever. Transition of care: patient was not received from another setting of care. Onset of symptoms was March 15, 2018. Risk Assessment: Do you want to hurt yourself or someone else? Patient reports no desire to harm self or others. Initial Sepsis Screen: Does the patient meet any 2 criteria? No. Patient's initial sepsis screen is negative. Does the patient have a suspected source of infection? No. Patient's initial sepsis screen is negative. Care prior to arrival: None. 14:59 Method Of Arrival: Ambulatory aj1 14:59 Acuity: MEGHAN 4 aj1 Triage Assessment: 15:03 General: Appears in no apparent distress. uncomfortable, Behavior is calm, cooperative, aj1 appropriate for age. Pain: Complains of pain in medial aspect of left thigh Pain currently is 6 out of 10 on a pain scale. Neuro: Level of Consciousness is awake, alert, obeys commands. Cardiovascular: Patient's skin is warm and dry. Respiratory: Airway is patent Respiratory effort is even, unlabored, Respiratory pattern is regular, symmetrical. 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 - Social history:: Smoking status: Patient uses tobacco products, 3-4 cigarettes per day. - Ebola Screening: : Patient denies travel to an Ebola-affected area in the 21 days before illness onset. - Family history:: not pertinent. Screenin:04 Abuse screen: Denies threats or abuse. Denies injuries from another. Nutritional ch screening: No deficits noted. Tuberculosis screening: No symptoms or risk factors identified. Fall Risk None identified. Assessment: 16:02 Reassessment: AWAITING ERP TO I AND D ABSCESS PRIOR TO DISCHARGE. PT MARKED FOR ch DISCHARGE PRIOR TO I AND D OF ABSCESS. General: Appears in no apparent distress. comfortable, Behavior is cooperative, appropriate for age. Pain: Complains of pain in left hamstring and medial aspect of left thigh Pain currently is 7 out of 10 on a pain scale. Pain began suddenly. Neuro: No deficits noted. Cardiovascular: No deficits noted. Respiratory: Airway is patent Respiratory effort is even, unlabored, Breath sounds are clear bilaterally. GI: No signs and/or symptoms were reported involving the gastrointestinal system. : No signs and/or symptoms were reported regarding the genitourinary system. Derm: Skin is normal, black, Abscess located on medial aspect of left thigh is quarter sized, has no drainage, is hot to touch, PT HAS QUARTER SIZED AREA OF TENDERNESS TO L INNER TIGHT. 16:27 Reassessment: Patient appears in no apparent distress at this time. Patient and/or ch family updated on plan of care and expected duration. Pain level reassessed. Patient is alert, oriented x 3, equal unlabored respirations, skin warm/dry/pink. 16:40 Reassessment: Patient appears in no apparent distress at this time. Patient and/or ch family updated on plan of care and expected duration. Pain level reassessed. Patient is alert, oriented x 3, equal unlabored respirations, skin warm/dry/pink. Vital Signs: 15:03 BP 146 / 95; Pulse 89; Resp 18; Temp 98.5(TE); Pulse Ox 98% on R/A; Weight 123.83 kg aj1 (R); Height 5 ft. 5 in. (165.10 cm); 16:27 BP 132 / 88; Pulse 78; Resp 15; Temp 98.3; Pulse Ox 99% on R/A; Pain 6/10; ch 15:03 Body Mass Index 45.43 (123.83 kg, 165.10 cm) aj1 ED Course: 14:28 Patient arrived in ED. sb2 14:28 None, None is Private Physician. sb2 15:01 Triage completed. aj1 15:03 Arm band placed on Patient placed in an exam room. aj1 15:11 Shamir Dyer MD is Attending Physician. [facility] 15:20 Breanne Mack RN is Primary Nurse. 15:42 Donald Blanco MD is Referral Physician. [facility] 16:27 No apparent distress. Resting quietly. 16:27 Placed in gown. Bed in low position. Call light in reach. Side rails up X 1. Pulse ox ch on. Warm blanket given. 16:27 Assist provider with I \T\ D: of an abscess on left upper medial thigh Set up I\T\D tray. ch Performed by Shamir Dyer MD Culture sent to lab. Wound packed. iodoform gauze, Dressing with 4X4s, tape Patient tolerated well. Patient did not have IV access during this emergency room visit. Administered Medications: 16:29 Drug: Lidocaine-Epinephrine -1%: (1:100,000) 10 ml Volume: 20 ml; Route: Infiltration; 16:29 Follow up: Response: No adverse reaction 16:29 Drug: Doxycycline 200 mg Route: PO; 16:29 Follow up: Response: No adverse reaction 16:29 Drug: Bactrim (160 mg-800 mg (DS) 1 tablet Route: PO; 16:29 Follow up: Response: No adverse reaction Point of Care Testing: Blood Glucose: 16:40 Blood Glucose: 135 mg/dL; Ranges: Outcome: 15:43 Discharge ordered by MD. [facility] 16:27 Discharged to home ambulatory, with family. 16:27 Condition: stable 16:27 Discharge instructions given to patient, Instructed on discharge instructions, follow up and referral plans. medication usage, Demonstrated understanding of instructions, follow-up care, medications, wound care. 16:44 Patient left the ED. Signatures: Breanne Mack, ESTEFANIA RN Beata Ghosh RN RN aj1 Shamir Dyer MD MD cha Billeau, Sheri sb2
--- NOTE | 2018-03-19 15:44 | EDPHYS ---
Physician Documentation [facility] Name: Juan Lu Age: 27 yrs Sex: Female : 1990 Arrival Date: 03/19/2018 Time: 14:28 Bed 20 Private MD: None, None ED Physician Shamir Dyer HPI: 03/19 15:37 This 27 yrs old Black Female presents to ER via Ambulatory with complaints of Abscess. jada 15:37 The patient presents with an abscess of the left hamstring. Description: The affected jada area is small, confluent, erythematous, swollen, warm. Onset: The symptoms/episode began/occurred 3 day(s) ago. Possible cause(s): unknown. Associated signs and symptoms: The patient has no apparent associated signs or symptoms. Severity of symptoms: At their worst the symptoms were mild, moderate, in the emergency department the symptoms are unchanged. The patient has not experienced similar symptoms in the past. 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 - Social history:: Smoking status: Patient uses tobacco products, 3-4 cigarettes per day. - Ebola Screening: : Patient denies travel to an Ebola-affected area in the 21 days before illness onset. - Family history:: not pertinent. ROS: 15:37 Constitutional: Negative for fever, chills, and weight loss, Eyes: Negative for injury, jada pain, redness, and discharge, ENT: Negative for injury, pain, and discharge, Neck: Negative for injury, pain, and swelling, Cardiovascular: Negative for chest pain, palpitations, and edema, Respiratory: Negative for shortness of breath, cough, wheezing, and pleuritic chest pain, Abdomen/GI: Negative for abdominal pain, nausea, vomiting, diarrhea, and constipation, Back: Negative for injury and pain, : Negative for injury, bleeding, discharge, and swelling, Skin: Negative for injury, rash, and discoloration, Neuro: Negative for headache, weakness, numbness, tingling, and seizure, Psych: Negative for depression, anxiety, suicide ideation, homicidal ideation, and hallucinations, Allergy/Immunology: Negative for hives, rash, and allergies, Endocrine: Negative for neck swelling, polydipsia, polyuria, polyphagia, and marked weight changes, Hematologic/Lymphatic: Negative for swollen nodes, abnormal bleeding, and unusual bruising. 15:37 MS/extremity: Positive for pain, swelling, tenderness, of the left hamstring. Exam: 15:37 Constitutional: This is a well developed, well nourished patient who is awake, alert, jada and in no acute distress. Head/Face: Normocephalic, atraumatic. Eyes: Pupils equal round and reactive to light, extra-ocular motions intact. Lids and lashes normal. Conjunctiva and sclera are non-icteric and not injected. Cornea within normal limits. Periorbital areas with no swelling, redness, or edema. ENT: Nares patent. No nasal discharge, no septal abnormalities noted. Tympanic membranes are normal and external auditory canals are clear. Oropharynx with no redness, swelling, or masses, exudates, or evidence of obstruction, uvula midline. Mucous membranes moist. Neck: Trachea midline, no thyromegaly or masses palpated, and no cervical lymphadenopathy. Supple, full range of motion without nuchal rigidity, or vertebral point tenderness. No Meningismus. Chest/axilla: Normal chest wall appearance and motion. Nontender with no deformity. No lesions are appreciated. Cardiovascular: Regular rate and rhythm with a normal S1 and S2. No gallops, murmurs, or rubs. Normal PMI, no JVD. No pulse deficits. Respiratory: Lungs have equal breath sounds bilaterally, clear to auscultation and percussion. No rales, rhonchi or wheezes noted. No increased work of breathing, no retractions or nasal flaring. Abdomen/GI: Soft, non-tender, with normal bowel sounds. No distension or tympany. No guarding or rebound. No evidence of tenderness throughout. Back: No spinal tenderness. No costovertebral tenderness. Full range of motion. MS/ Extremity: Pulses equal, no cyanosis. Neurovascular intact. Full, normal range of motion. Neuro: Awake and alert, GCS 15, oriented to person, place, time, and situation. Cranial nerves II-XII grossly intact. Motor strength 5/5 in all extremities. Sensory grossly intact. Cerebellar exam normal. Normal gait. Psych: Awake, alert, with orientation to person, place and time. Behavior, mood, and affect are within normal limits. 15:37 Skin: abscess, that is small, approximately 3 cm(s), cellulitis, that is mild, induration, that is moderate is noted, located on the left hamstring. Vital Signs: 15:03 BP 146 / 95; Pulse 89; Resp 18; Temp 98.5(TE); Pulse Ox 98% on R/A; Weight 123.83 kg [facility] (R); Height 5 ft. 5 in. (165.10 cm); 16:27 BP 132 / 88; Pulse 78; Resp 15; Temp 98.3; Pulse Ox 99% on R/A; Pain 6/10; ch 15:03 Body Mass Index 45.43 (123.83 kg, 165.10 cm) [facility] Procedures: 15:46 I \T\ D: Incision and drainage was performed for an abscess of the left Prepped with [facility] Betadine, Anesthetized with 10 ml's 1% Lidocaine w/ Epi. Incised with #11 blade. Drained small amount Packed with iodoform gauze, Dressing: non-Adherent dressing, the patient tolerated the procedure well. MDM: 15:11 Patient medically screened. [facility] 15:46 Data reviewed: vital signs, nurses notes, lab test result(s), urinalysis. [facility] 03/19 15:32 Order name: Wound Culture [facility] 03/19 15:35 Order name: Urine Dipstick--Ancillary (enter results); Complete Time: 15:51 03/19 15:35 Order name: Urine --Ancillary (enter results); Complete Time: 15:51 03/19 15:32 Order name: Urine Dipstick-Ancillary (obtain specimen); Complete Time: 15:34 [facility] 03/19 15:32 Order name: Urine Test (obtain specimen); Complete Time: 15:34 [facility] 03/19 15:32 Order name: Dressing - Wound; Complete Time: 16:29 [facility] 03/19 15:32 Order name: Gloves, Sterile; Complete Time: 15:34 [facility] 03/19 15:32 Order name: Setup Suture Tray; Complete Time: 15:34 [facility] 03/19 15:51 Order name: Blood Glucose Level; Complete Time: 16:28 [facility] Administered Medications: 16:29 Drug: Lidocaine-Epinephrine -1%: (1:100,000) 10 ml Volume: 20 ml; Route: Infiltration; 16:29 Follow up: Response: No adverse reaction 16:29 Drug: Doxycycline 200 mg Route: PO; 16:29 Follow up: Response: No adverse reaction 16:29 Drug: Bactrim (160 mg-800 mg (DS) 1 tablet Route: PO; 16:29 Follow up: Response: No adverse reaction Point of Care Testing: Blood Glucose: 16:40 Blood Glucose: 135 mg/dL; Ranges: Critical Glucose Levels:Adult <50 mg/dl or >400 mg/dl <40 mg/dl or >180 mg/dl Disposition: 03/19/18 15:43 Discharged to Home. Impression: Cutaneous abscess of limb, Type 2 diabetes mellitus. - Condition is Stable. - Discharge Instructions: Skin Abscess, Type 2 Diabetes Mellitus, Diagnosis, Adult, Incision and Drainage, Skin Abscess, Wkpy-[id number]-Tame, Incision Care, Adult, Type 2 Diabetes Mellitus, Diagnosis, Adult, [id number]. - Prescriptions for Ibuprofen 600 mg Oral Tablet - take 1 tablet by ORAL route every 6 hours As needed take with food; 20 tablet. Doxycycline Hyclate 100 mg Oral Tablet - take 1 tablet by ORAL route every 12 hours; 20 tablet. Bactrim DS 800- 160 mg Oral Tablet - take 1 tablet by ORAL route every 12 hours for 10 days; 20 tablet. - Medication Reconciliation Form, Thank You Letter, Antibiotic Education, Prescription Opioid Use form. - Follow up: Donald Blanco MD; When: 2 - 3 days; Reason: Recheck today's complaints, Continuance of care, Re-evaluation by your physician. - Problem is new. - Symptoms have improved. Signatures: Dispatcher [employer] Breanne Goyal, RN RN Beata Ghosh RN RN aj1 Shamir Dyer MD MD cha Corrections: (The following items were deleted from the chart) 16:44 15:43 03/19/2018 15:43 Discharged to Home. Impression: Cutaneous abscess of limb; Type ch 2 diabetes mellitus. Condition is Stable. Forms are Medication Reconciliation Form, Thank You Letter, Antibiotic Education, Prescription Opioid Use. Follow up: Donald Blanco; When: 2 - 3 days; Reason: Recheck today's complaints, Continuance of care, Re-evaluation by your physician. Problem is new. Symptoms have improved. jada
[2018-03-19] MEDS ORDERED: DOXYCYCLINE 100 MG CAP PO ONE (16:26)
[2018-03-19] MEDS ORDERED: SMZ./TMP. 800/160 MG TABLET ONE (16:26)
== END 2018-03-19 16:44 | disposition home or self-care (01) ==
LOC: ER 14:26
PROC: 0J9M0ZZ Drainage of Left Upper Leg Subcutaneous Tissue and Fascia, Open Approach (ICD-10-PCS; principal; 2018-03-19)
DX: L02.416 Cutaneous abscess of left lower limb (principal); E11.9 Type 2 diabetes mellitus without complications; F17.210 Nicotine dependence, cigarettes, uncomplicated; F31.9 Bipolar disorder, unspecified; F41.9 Anxiety disorder, unspecified; Z88.5 Allergy status to narcotic agent; Z88.6 Allergy status to analgesic agent; Z91.018 Allergy to other foods
CPT/HCPCS: 81003; 81025; 82962; 87070; 87205; 99284

== ENCOUNTER 2018-03-24 20:51 | Emergency (ER) | payer SELFPAY ==
--- OUTSIDE RECORDS SUMMARY | 2018-03-24 20:53 | XMS REPORT | Clinical Summary ---
:1990 Author Organization [facility] Address [address] [place] [address] Care Team Providers Name Role Phone Asked, [...] Singer MD Flack, James N., MD after 03/23/2017 Family History Medical History Relation Name Comments [...] procedure are in the results section. after 03/23/2017 Results US Greater Than 14 Weeks (04/11/2017 [...] previa or abruption. Unremarkable anatomical survey. [id number] Procedure Note Interface, Radiology Results Incoming - [...] placenta previa or abruption. Unremarkable anatomical survey. [facility]-[id number] Performing Organization Address City/State/Zipcode Phone Number [facility] [address] [place] [address] CBC hemogram (04/11/2017 5:45 AM) WBC 12.03 (H) 4.50 - 11.00 k/uL [facility] DEPARTMENT OF PATHOLOGY AND GENOMIC MEDICINE RBC 4.17 (L) 4.20 - 5.50 m/uL [facility] DEPARTMENT OF PATHOLOGY AND GENOMIC MEDICINE HGB 12.2 12.0 - 16.0 g/dL [facility] DEPARTMENT OF PATHOLOGY AND GENOMIC MEDICINE HCT 37.0 37.0 - 47.0 % [facility] DEPARTMENT OF PATHOLOGY AND GENOMIC MEDICINE MCV 88.7 82.0 - 100.0 fL [facility] DEPARTMENT OF PATHOLOGY AND GENOMIC MEDICINE MCH 29.3 27.0 - 34.0 pg [facility] DEPARTMENT OF PATHOLOGY AND GENOMIC MEDICINE MCHC 33.0 31.0 - 37.0 g/dL [facility] DEPARTMENT OF PATHOLOGY AND GENOMIC MEDICINE RDW - SD 42.4 37.0 - 55.0 fL [facility] DEPARTMENT OF PATHOLOGY AND GENOMIC MEDICINE MPV 9.3 8.8 - 13.2 fL [facility] DEPARTMENT OF PATHOLOGY AND GENOMIC MEDICINE Platelet count 353 150 - 400 k/uL [facility] DEPARTMENT OF PATHOLOGY AND GENOMIC MEDICINE Nucleated RBC 0.00 /100 WBC [facility] DEPARTMENT OF PATHOLOGY AND GENOMIC MEDICINE Specimen Blood Performing Organization Address City/State/Zipcode Phone Number [facility] DEPARTMENT OF PATHOLOGY AND [address] [place] [address] GENOMIC MEDICINE Type and screen (04/11/2017 5:45 AM) ABO grouping B [facility] DEPARTMENT OF PATHOLOGY AND GENOMIC MEDICINE Rh type POS [facility] DEPARTMENT OF PATHOLOGY AND GENOMIC MEDICINE Antibody screen (gel) NEG [facility] DEPARTMENT OF PATHOLOGY AND GENOMIC MEDICINE Specimen Blood Performing Organization Address City/[facility] Phone Number [facility] DEPARTMENT OF PATHOLOGY AND [address] [place] [address] MEDICINE Fasting glucose level (04/11/2017 5:45 AM) Glucose, fasting 101 (H) 65 - 99 mg/dL [facility] DEPARTMENT OF PATHOLOGY AND GENOMIC MEDICINE Specimen Blood Performing Organization Address City/[facility]/Zipcode Phone Number [facility] DEPARTMENT OF PATHOLOGY AND [address] [place] [address] GENOMIC MEDICINE Estimated GFR (04/11/2017 3:42 AM) GFR Non Af Amer >90 mL/min/1.73 m2 [facility] DEPARTMENT OF PATHOLOGY AND GENOMIC MEDICINE GFR Af Amer >90 mL/min/1.73 m2 [facility] DEPARTMENT OF Comment: PATHOLOGY AND GENOMIC [...] Americans. Specimen Plasma specimen Performing Organization Address City/State/[facility] Phone Number [facility] DEPARTMENT OF PATHOLOGY AND [address] [place] [phone] [place] [address] Basic metabolic panel (04/11/2017 3:42 AM) Sodium 138 135 - 148 mEq/L [facility] DEPARTMENT OF PATHOLOGY AND GENOMIC MEDICINE Potassium 3.8 3.5 - 5.0 mEq/L [facility] DEPARTMENT OF PATHOLOGY AND GENOMIC MEDICINE Chloride 99 98 - 112 mEq/L [facility] DEPARTMENT OF PATHOLOGY AND GENOMIC MEDICINE CO2 23 (L) 24 - 31 mEq/L [facility] DEPARTMENT OF PATHOLOGY AND GENOMIC MEDICINE Anion gap 16 (H) 7 - 15 mEq/L [facility] DEPARTMENT OF PATHOLOGY Comment: [facility] Starting from November , anion gap calculation no longer incorporates potassium. Please note the change. BUN 6 6 - 20 mg/dL [facility] DEPARTMENT OF PATHOLOGY AND GENOMIC MEDICINE Creatinine 0.6 0.5 - 0.9 mg/dL [facility] DEPARTMENT OF PATHOLOGY AND GENOMIC MEDICINE Glucose 101 (H) 65 - 99 mg/dL [facility] DEPARTMENT OF PATHOLOGY AND GENOMIC MEDICINE Calcium 9.5 8.3 - 10.2 mg/dL [facility] DEPARTMENT OF PATHOLOGY AND [employer] MEDICINE Specimen Plasma specimen Performing Organization Address City/[facility] Phone Number [facility] DEPARTMENT OF PATHOLOGY AND [address] [place] [phone] [facility] Hepatitis B surface antigen (04/10/2017 6:20 PM) Hepatitis B surface Ag Non-reactive Non-reactive [facility] DEPARTMENT OF PATHOLOGY AND [employer] MEDICINE Specimen Blood Performing Organization Address City/[facility]/Zipcode Phone Number [facility] DEPARTMENT OF PATHOLOGY AND [address] [place] [phone] [facility] Glucose level (04/10/2017 6:20 PM) Glucose 98 65 - 99 mg/dL [facility] DEPARTMENT OF PATHOLOGY AND [facility] MEDICINE Specimen Plasma specimen Performing Organization Address [facility] Phone Number [facility] DEPARTMENT OF PATHOLOGY AND [address] [place] [address] Syphilis treponemal IgG (04/10/2017 6:18 PM) Syphilis treponemal IgG Non-reactiveComment: Non-reactive [facility] DEPARTMENT OF Non-reactive: No PATHOLOGY AND GENOMIC serological evidence of MEDICINE Syphilis infection Specimen Serum Performing Organization Address [facility] Phone Number [facility] DEPARTMENT OF PATHOLOGY AND [address] [place] [address] Rubella Ab IgG (04/10/2017 6:18 PM) Rubella IgG antibody Positive Negative [facility] DEPARTMENT OF PATHOLOGY Comment: [facility] IgG antibody levels are at a level that are considered to indicate positive immunity Specimen Serum Performing Organization Address [facility] Phone Number [facility] DEPARTMENT OF PATHOLOGY AND [address] [place] [address] HIV 1, 2 antibody (04/10/2017 6:18 PM) HIV 1, 2 antibody Non-reactive Non-reactive [facility] DEPARTMENT OF Comment: PATHOLOGY AND GENOMIC Starting from November 02 2015, 4th generation HIV screening MEDICINE and confirmation assays are in use at [facility], consistent with the CDC-recommended algorithm. [...] on the testing algorithm, please refer to: http://stacks.cdc.gov/view/cdc/31321. Specimen Blood Performing Organization Address [facility] Phone Number [facility] DEPARTMENT OF PATHOLOGY AND [address] [place] [address] Hemoglobin A1c (04/10/2017 5:40 AM) Hemoglobin A1C 6.0 (H) 4.0 - 5.6 % [facility] DEPARTMENT OF PATHOLOGY Comment: [facility] HbA1c cutoffs for diagnosing diabetes: 4.0% - 5.6%=normal 5.7% - 6.4%=increased risk for diabetes (prediabetes) >=6.5%=diabetes Goals for glycemic control (ADA 2016) < 7.0%Target for non adults with diabetes. More or less stringent targets may be appropriate for individual patients. <7.5% Target for Children and adolescents with type 1 diabetes. Specimen Blood Performing Organization Address City/[facility] Phone Number [facility] DEPARTMENT OF PATHOLOGY AND [address] [place] [address] GENOMIC MEDICINE Lipid panel (04/10/2017 5:40 AM) Cholesterol 167 <200 mg/dL [facility] DEPARTMENT OF PATHOLOGY AND GENOMIC MEDICINE Triglycerides 122 <150 mg/dL [facility] DEPARTMENT OF PATHOLOGY AND GENOMIC MEDICINE HDL cholesterol 55 >40 mg/dL [facility] DEPARTMENT OF PATHOLOGY AND GENOMIC MEDICINE LDL cholesterol 98Comment: Result <100 mg/dL [facility] DEPARTMENT OF obtained by direct LDL PATHOLOGY AND GENOMIC measurement MEDICINE Lipid panel interpretation SeeBelow [facility] DEPARTMENT OF Comment: PATHOLOGY AND GENOMIC Total Cholesterol (mg/dL) MEDICINE <200 Desirable 642-405Nomfuaevgx-bnzu >=240High Triglycerides (mg/dL) <150 Normal 157-303Ticjnutudw-zxdg 200-499High >=500Very high HDL Cholesterol (mg/dL) <40Low (male) <40Low (female) LDL Cholesterol (mg/dL) <100 Optimal 100-129Near or above optimal 183-482Bstwvwlnhn-xpbw 160-189High >=190Very high Risk Catergories that modify [...] specimen Performing Organization Address City/State/Zipcode Phone Number [facility] DEPARTMENT OF PATHOLOGY AND [address] [place] [address] [employer] MEDICINE after 03/23/2017 Insurance Payer Benefit Plan / Group Subscriber ID Type Phone Address MEDICAID MEDICAID xxxxxxxxx Medicaid
[2018-03-24] MEDS ORDERED: NA CHLORIDE 0.9% 1,000 ML ONE (21:54)
[2018-03-24 22:43] LABS: Absolute Lymphocytes (CBC) 3.7 K/uL (0.7-4.9); Absolute Monocytes 0.6 K/uL (0.1-1.3); Absolute Neutrophil 3.9 K/uL (1.8-8.0); Basophils % 0.8 % (0-1.3); Eosinophils % 3.9 % (0-4.4); Hematocrit 37.1 % (36.0-45.0); Lymphocytes % 42.9 % (15.3-44.8); MCH 28.6 pg (27.0-35.0); MCV 84.5 fL (80-100); MPV 7.7 fL (7.6-11.3); Monocytes % 6.7 % (3.3-12.3); RBC Red Blood Cell Count 4.39 M/uL (3.86-4.86)
[2018-03-24 22:50] LABS: ALT/SGPT 22 U/L (12-78); AST/SGOT 13 U/L (15-37); Albumin 3.4 g/dL (3.4-5.0); Alkaline Phosphatase 83 U/L (45-117); Amylase Level 44 U/L (25-115); BUN Blood Urea Nitrogen 12 mg/dL (7-18); Bicarbonate 27 mmol/L (21-32); Bilirubin Direct < 0.1 mg/dL (0-0.2); Bilirubin Total 0.1 mg/dL (0.2-1.0); CKMB Creatine Kinase MB < 1.0 ng/mL (0.3-3.6); Creatine Phosphokinase 151 U/L (26-192); Glucose Level 140 mg/dL (74-106); Lipase 193 U/L (73-393); Magnesium 1.7 mg/dL (1.8-2.4); Potassium 3.7 mmol/L (3.5-5.1); Sodium Level 138 mmol/L (136-145)
--- NOTE | 2018-03-24 23:15 | EDPHYS ---
Physician Documentation [facility] Name: Juan Lu Age: 27 yrs Sex: Female : 1990 Arrival Date: 03/24/2018 Time: 20:52 Bed 16 Private MD: ED Physician Wilian Trivedi HPI: 03/24 21:36 This 27 yrs old Black Female presents to ER via EMS with complaints of fatigue. ps1 21:36 patient is at [facility] for rehab of etoh, cocaine, and THC. She is about to ps1 graduate in 3 days. She states it is a bootcamp environment and she has had sleep disturbance and decreased oral intake other than water. She is a diabetic. She states that she has had symptoms of lightheadedness today and fatigue and thought she was going to pass out. No CP, tightness, pressure. . 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 - Social history:: Smoking status: Patient/guardian denies using tobacco. - Ebola Screening: : No symptoms or risks identified at this time. ROS: 21:36 Eyes: Negative for injury, pain, redness, and discharge, ENT: Negative for injury, ps1 pain, and discharge, Cardiovascular: Negative for chest pain, palpitations, and edema, Respiratory: Negative for shortness of breath, cough, wheezing, and pleuritic chest pain, Abdomen/GI: Negative for abdominal pain, nausea, vomiting, diarrhea, and constipation, MS/Extremity: Negative for injury and deformity, Skin: Negative for injury, rash, and discoloration. 21:36 Constitutional: Positive for fatigue, poor PO intake. 21:36 Neuro: Positive for near syncope. Exam: 21:36 Constitutional: This is a well developed, well nourished patient who is awake, alert, ps1 and in no acute distress. Head/Face: Normocephalic, atraumatic. Eyes: Pupils equal round and reactive to light, extra-ocular motions intact. Lids and lashes normal. Conjunctiva and sclera are non-icteric and not injected. Chest/axilla: Normal chest wall appearance and motion. Nontender with no deformity. No lesions are appreciated. Cardiovascular: Regular rate and rhythm. No gallops, murmurs, or rubs. Normal PMI, no JVD. No pulse deficits. Respiratory: Lungs have equal breath sounds bilaterally, clear to auscultation and percussion. No rales, rhonchi or wheezes noted. No increased work of breathing, no retractions or nasal flaring. Abdomen/GI: Soft, non-tender, with normal bowel sounds. No distension or tympany. No guarding or rebound. No evidence of tenderness throughout. Skin: Warm, dry with normal turgor. Normal color with no rashes, no lesions, and no evidence of cellulitis. MS/ Extremity: Pulses equal, no cyanosis. Neurovascular intact. Full, normal range of motion. Neuro: Awake and alert, GCS 15, oriented to person, place, time, and situation. Cranial nerves II-XII grossly intact. Sensory grossly intact. Psych: Awake, alert, with orientation to person, place and time. Behavior, mood, and affect are within normal limits. Vital Signs: 20:58 BP 121 / 83; Pulse 83; Resp 18; Temp 97.8; Pulse Ox 99% ; Pain 9/10; ea 21:54 BP 128 / 87 Supine; Pulse 71; ea 21:55 BP 143 / 95 Sitting; Pulse 71; ea 21:58 BP 149 / 99; Pulse 82; ea 22:45 BP 138 / 93; Pulse 73; Resp 18; Pulse Ox 100% ; Pain 0/10; ea 23:58 BP 130 / 89; Pulse 72; Resp 18; Pulse Ox 99% on R/A; ea 03/25 01:10 BP 123 / 89; Pulse 70; Resp 18; Pulse Ox 100% ; ea MDM: 03/24 21:28 Patient medically screened. ps1 22:00 Data reviewed: vital signs, nurses notes, lab test result(s), EKG, radiologic studies, ps1 and as a result, I will discharge patient. Counseling: I had a detailed discussion with the patient and/or guardian regarding: the historical points, exam findings, and any diagnostic results supporting the discharge/admit diagnosis, lab results, the need for outpatient follow up. Special discussion: I discussed with the patient/guardian in detail that at this point there is no indication for admission to the hospital. It is understood, however, that if the symptoms persist or worsen the patient needs to return immediately for re-evaluation. 03/24 21:41 Order name: Amylase, Serum; Complete Time: 22:55 03/24 21:41 Order name: Basic Metabolic Panel; Complete Time: : 03/24 21:41 Order name: CBC with Diff; Complete Time: :55 03/24 21:41 Order name: Ckmb; Complete Time: :55 03/24 21:41 Order name: CPK; Complete Time: : 03/24 21:41 Order name: Hepatic Function; Complete Time: :55 03/24 21:41 Order name: Lipase; Complete Time: :55 03/24 21:41 Order name: Magnesium; Complete Time: :55 03/24 21:41 Order name: Protime (+inr); Complete Time: 00: 03/24 21:41 Order name: Ptt, Activated; Complete Time: 00: 03/24 21:41 Order name: Troponin (emerg Dept Use Only); Complete Time: :55 03/24 21:41 Order name: EKG; Complete Time: 21:42 03/24 21:41 Order name: Cardiac monitoring; Complete Time: 22:52 03/24 21:41 Order name: EKG - Nurse/Tech; Complete Time: 22: 03/24 21:41 Order name: IV Saline Lock; Complete Time: 22: 03/24 21:41 Order name: Labs collected and sent; Complete Time: 22: 03/24 21:41 Order name: NPO; Complete Time: 22: 03/24 21:41 Order name: O2 Per Protocol; Complete Time: 22: 03/24 21:41 Order name: O2 Sat Monitoring; Complete Time: 22: 03/24 21:41 Order name: Urine Dipstick-Ancillary (obtain specimen); Complete Time: 22: 03/24 21:42 Order name: Urine Test (obtain specimen); Complete Time: 22:52 ps1 03/24 21:42 Order name: Cardiac monitoring; Complete Time: 22:15 ps1 03/24 22:03 Order name: Urine Dipstick--Ancillary (enter results); Complete Time: 00:09 ms 03/24 21:42 Order name: EKG - Nurse/Tech; Complete Time: 22:15 ps1 03/24 21:42 Order name: IV Saline Lock; Complete Time: 22:15 ps1 03/24 21:42 Order name: Labs collected and sent; Complete Time: 22:15 ps1 03/24 21:42 Order name: NPO; Complete Time: 22:15 ps1 03/24 21:42 Order name: O2 Per Protocol; Complete Time: 22:15 ps1 03/24 21:42 Order name: O2 Sat Monitoring; Complete Time: 22:15 ps1 03/24 21:42 Order name: Urine Dipstick-Ancillary (obtain specimen); Complete Time: 22:15 ps1 03/24 21:42 Order name: Orthostatic Blood Pressure; Complete Time: 23:42 ps1 EC:00 Rate is 72 beats/min. Rhythm is regular. QRS [place] is Normal. CT interval is normal. QRS ps1 interval is normal. QT interval is normal. No Q waves. T waves are Normal. Clinical impression: Normal ECG. Interpreted by me. Administered Medications: 22:12 Drug: NS 0.9% 1000 ml Route: IV; Rate: bolus; Site: left antecubital; man 03/25 00:01 Follow up: Response: No adverse reaction; IV Status: Completed infusion man Disposition: 03/24/18 23:14 Discharged to Home. Impression: Dehydration, Near Syncope. - Condition is Stable. - Discharge Instructions: Dehydration, Adult, Near-Syncope, [id number]. - Medication Reconciliation Form, Thank You Letter, Antibiotic Education, Prescription Opioid Use form. - Follow up: Emergency Department; When: As needed; Reason: Trouble breathing, Worsening of condition. Follow up: Private Physician; When: As needed; Reason: Further diagnostic work-up, Recheck today's complaints, Continuance of care, Re-evaluation by your physician. - Problem is new. - Symptoms have improved. Signatures: Dispatcher [employer] Nadia Mera RN RN ea Singer, Phillip, MD MD ps1 Corrections: (The following items were deleted from the chart) 03/24 22:12 21:43 CBC+H.LAB.BRZ ordered. EDWI EDMS 22:12 21:43 TROPONIN (EMERG DEPT USE ONLY)+C.LAB.BRZ ordered. ED[facility] EDMS 22:13 21:43 LIPASE+C.LAB.BRZ ordered. [facility] EDMS 22:13 21:43 MAGNESIUM+C.LAB.BRZ ordered. EDWI EDMS 22:13 21:43 COMPREHENSIVE METABOLIC PANEL+C.LAB.BRZ ordered. [facility] 03/25 01:59 03/24 23:14 03/24/2018 23:14 Discharged to Home. Impression: Dehydration; Near Syncope. ea Condition is Stable. Forms are Medication Reconciliation Form, Thank You Letter, Antibiotic Education, Prescription Opioid Use. Follow up: Emergency Department; When: As needed; Reason: Trouble breathing, Worsening of condition. Follow up: Private Physician; When: As needed; Reason: Further diagnostic work-up, Recheck today's complaints, Continuance of care, Re-evaluation by your physician. Problem is new. Symptoms have improved. ps1
--- NOTE | 2018-03-24 23:15 | ER ---
Nurse's Notes [facility] Name: Juan Lu Age: 27 yrs Sex: Female : 1990 Arrival Date: 03/24/2018 Time: 20:52 Bed 16 Private MD: Diagnosis: Dehydration;Near Syncope Presentation: 03/24 20:58 Presenting complaint: EMS states: Pt has been complaining of headache, dizziness and ea weakness. Transition of care: patient was received from another setting of care (rehabilitation facility). Risk Assessment: Do you want to hurt yourself or someone else? Patient reports no desire to harm self or others. Initial Sepsis Screen: Does the patient meet any 2 criteria? No. Patient's initial sepsis screen is negative. Does the patient have a suspected source of infection? No. Patient's initial sepsis screen is negative. Care prior to arrival: None. 20:58 Method Of Arrival: EMS: [facility] ea 20:58 Acuity: MEGHAN 3 ea 21:00 Onset of symptoms was March 24, 2018. ea Triage Assessment: 20:58 General: Appears uncomfortable, Behavior is calm, cooperative, appropriate for age. ea Pain: Complains of pain in headache Pain currently is 8 out of 10 on a pain scale. Quality of pain is described as aching, Pain began 1 week Is intermittent. Neuro: Level of Consciousness is awake, alert, obeys commands, Oriented to person, place, time, situation, Reports dizziness, headache since 1 week ago weakness in generalized. Cardiovascular: Patient's skin is warm and dry. Respiratory: Airway is patent Respiratory effort is even, unlabored, Respiratory pattern is regular, symmetrical. Derm: Skin is dry, Skin is normal, Skin temperature is warm. 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 - Social history:: Smoking status: Patient/guardian denies using tobacco. - Ebola Screening: : No symptoms or risks identified at this time. Screenin:58 Abuse screen: Denies threats or abuse. Nutritional screening: No deficits noted. ea Tuberculosis screening: No symptoms or risk factors identified. 21:00 Fall Risk None identified. ea Assessment: 23:57 Reassessment: Patient and/or family updated on plan of care and expected duration. Pain ea level reassessed. Patient is alert, oriented x 3, equal unlabored respirations, skin warm/dry/pink. Discharge instructions given to patient, verbalized the understanding of instruction. Attempted to reach [facility] for transportation. Patient states feeling better. 03/25 00:30 Reassessment: Patient and/or family updated on plan of care and expected duration. Pain ea level reassessed. Patient is alert, oriented x 3, equal unlabored respirations, skin warm/dry/pink. attempted to call [facility] for transportation, unable to reach staff at this time, will try again in thirty minutes. 01:14 Reassessment: [facility] staff member called to verify transportation, reports ETA 20 ea min. 01:55 Reassessment: Patient and/or family updated on plan of care and expected duration. Pain ea level reassessed. Patient is alert, oriented x 3, equal unlabored respirations, skin warm/dry/pink. 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 Patient states feeling better. Vital Signs: 03/24 20:58 BP 121 / 83; Pulse 83; Resp 18; Temp 97.8; Pulse Ox 99% ; Pain 9/10; ea 21:54 BP 128 / 87 Supine; Pulse 71; ea 21:55 BP 143 / 95 Sitting; Pulse 71; ea 21:58 BP 149 / 99; Pulse 82; ea 22:45 BP 138 / 93; Pulse 73; Resp 18; Pulse Ox 100% ; Pain 0/10; ea 23:58 BP 130 / 89; Pulse 72; Resp 18; Pulse Ox 99% on R/A; ea 03/25 01:10 BP 123 / 89; Pulse 70; Resp 18; Pulse Ox 100% ; ea ED Course: 03/24 20:52 Patient arrived in ED. am2 20:58 Nadia Bowen, RN is Primary Nurse. ea 20:58 Patient has correct armband on for positive identification. Bed in low position. Call ea light in reach. Side rails up X2. 20:58 Arm band placed on right wrist. Patient placed in an exam room, on a stretcher, on ea pulse oximetry. 21:00 Triage completed. ea 21:23 Wilian Trivedi MD is Attending Physician. ps1 22:16 Inserted saline lock: 22 gauge in left antecubital area, using aseptic technique. ea 23:57 No provider procedures requiring assistance completed. ea 03/25 01:58 IV discontinued, intact, bleeding controlled, No redness/swelling at site. Pressure ea dressing applied. Administered Medications: 03/24 22:12 Drug: NS 0.9% 1000 ml Route: IV; Rate: bolus; Site: left antecubital; ea 03/25 00:01 Follow up: Response: No adverse reaction; IV Status: Completed infusion ea Outcome: 03/24 23:14 Discharge ordered by MD. ps1 23:57 Discharge instructions given to patient, Instructed on discharge instructions, follow ea up and referral plans. Demonstrated understanding of instructions, follow-up care. 03/25 01:59 Discharged to Rehab Facility ea Condition: improved 01:59 Patient left the ED. ea Signatures: Lesvia Sterling am2 Nadia Bowen, RN RN Wilian Iniguez MD MD ps1 Corrections: (The following items were deleted from the chart) 03/24 21:43 20:58 BP 121 / 83; Pulse 83bpm; Resp 18bpm; Pulse Ox 99%; ea ea 03/25 00:32 03/24 23:57 Reassessment: Patient and/or family updated on plan of care and expected ea duration. Pain level reassessed. Patient is alert, oriented x 3, equal unlabored respirations, skin warm/dry/pink. Patient states feeling better. ea
[2018-03-24 23:33] LABS: Urine Blood 3+ (NEG); Urine Glucose NEGATIVE (NEG); Urine Protein TRACE (NEG); Urine pH 6.5 (5.0-7.0)
[2018-03-24 23:50] LABS: Protime INR 1.03
--- NOTE | 2018-03-25 07:50 | EKG ---
Test Date: 2018-03-24 Test Time: 22:00:31 Occupational Therapy Director: GILBERTO MEASUREMENT RESULTS: Intervals: Rate: 72 DC: 154 QRSD: 74 QT: 408 QTc: 446 [place]: P: 51 DC: 154 QRS: 32 T: 37 INTERPRETIVE STATEMENTS: Normal sinus rhythm with sinus arrhythmia Normal ECG No previous ECG available for comparison Electronically Signed On 03-25-18 07:49:39 CDT by Darin Luong
== END 2018-03-25 01:59 | disposition home or self-care (01) ==
LOC: ER 20:51
DX: E86.0 Dehydration (principal); F31.9 Bipolar disorder, unspecified; E11.9 Type 2 diabetes mellitus without complications; Z88.5 Allergy status to narcotic agent; Z88.6 Allergy status to analgesic agent; Z91.018 Allergy to other foods; Z91.040 Latex allergy status
CPT/HCPCS: 36415; 80048; 80076; 81003; 82150; 82550; 82553; 83690; 83735; 84484; 85025; 85610; 85730; 93005; 96360; 96361; 99284; J7030